=== PATIENT | male | born 1955 | race Caucasian/White ===

== ENCOUNTER 2018-03-25 09:14 | Emergency (ER) | payer OTHER ==
[2018-03-25] MEDS ORDERED: Ketorolac Tromethamine 30 MG/ML VIAL ONE (09:59)
--- NOTE | 2018-03-25 11:01 | CT ---
CT LUMBAR SPINE WITH CORONAL AND SAGITTAL REFORMATIONS: Date: 03/25/18 HISTORY: Severe low back pain. FINDINGS: There is mild wedging of the superior end plate of T12 vertebral body with adjacent sclerotic change consistent with compression fracture. No subluxation or retropulsion is seen. The vertebral body heig hts in the lumbar spine are maintained. Degenerative changes are present. There are broad based disc bulges at L3-L4, L4-L5, and L5-S1 levels with suggestion of right-sided neural foraminal stenosis at L5-S1 level. IMPRESSION: Mild wedge compression fracture T12 vertebra. POS: GIDEON
== END 2018-03-25 11:00 | disposition home or self-care (01) ==
LOC: ERS 09:14
DX: S22.080A Wedge compression fracture of T11-T12 vertebra, initial encounter for closed fracture (principal); K21.9 Gastro-esophageal reflux disease without esophagitis; I10 Essential (primary) hypertension; Z85.21 Personal history of malignant neoplasm of larynx; X50.9XXA Other and unspecified overexertion or strenuous movements or postures, initial encounter; Y92.59 Other trade areas as the place of occurrence of the external cause; Y99.0 Civilian activity done for income or pay
CPT/HCPCS: 72131; 96374; J1885

== ENCOUNTER 2018-12-07 11:03 | Outpatient (CLI) | payer OTHER ==
--- NOTE | 2018-12-07 12:32 | ULT ---
LEFT LOWER EXTREMITY VENOUS DUPLEX: History: Left lower extremity pain and swelling. FINDINGS: Real-time color doppler evaluation of the left lower extremity was performed from groin to calf. This includes evaluation of the common femoral, superficial, femoral, profunda femoral, saphenous, poplit eal and posterior tibial vein. This shows a deep venous system. There is normal compressibility and a ugmentation. There is no evidence of DVT. IMPRESSION: No evidence of DVT of the left lower extremity. POS: GIDEON
== END 2018-12-07 11:04 | disposition home or self-care (01) ==
LOC: SCSULT 11:03
PROVIDERS: ATTEND Family Medicine
DX: M79.89 Other specified soft tissue disorders (principal)

== ENCOUNTER 2019-05-03 10:06 | Outpatient (CLI) | payer OTHER ==
--- NOTE | 2019-05-03 10:40 | RAD ---
3 views right shoulder: 05/03/2019 HISTORY: Fall, trauma, pain FINDINGS: No widening of the acromioclavicular or coracoclavicular interspace. There is mild degenera tive change involving the right AC joint. No displaced fracture or evidence of dislocation is seen. IMPRESSION: No acute osseous abnormality.
[2019-05-03 11:21] LABS: Free T4 (Free Thyroxine) 1.06 ng/dL (0.70-1.48); Thyroid Stimulating Hormone 0.9259 uIU/mL (0.35-4.94)
--- NOTE | 2019-05-03 11:23 | RAD ---
3 VIEW LEFT FOOT: Date: 05/03/19 INDICATION: Left foot pain. FINDINGS: Lisfranc joint is intact. No fracture or dislocation of the left foot. No significant arthropathy. Mi ld enthesophyte formation is seen at the calcaneus. IMPRESSION: No acute osseous abnormality. POS: EMY
[2019-05-03 11:49] LABS: Hemoglobin A1c 6.3 % (4.0-6.0)
== END 2019-05-03 10:07 | disposition home or self-care (01) ==
LOC: SCSRAD 10:06
PROVIDERS: ATTEND Family Medicine
DX: S43.421A Sprain of right rotator cuff capsule, initial encounter (principal); M72.2 Plantar fascial fibromatosis; E03.9 Hypothyroidism, unspecified; R73.09 Other abnormal glucose
CPT/HCPCS: 36415; 83036; 84439; 84443; 84481

== ENCOUNTER 2019-06-15 15:38 | Outpatient (CLI) | payer OTHER ==
--- NOTE | 2019-06-20 10:13 | MRI ---
MRI RIGHT SHOULDER WITHOUT CONTRAST: INDICATIONS: Right shoulder pain. COMPARISON: Right shoulder radiograph dated 05/03/2019. FINDINGS: There is a complete full-width tear of the supraspinatus with tear measuring 3 cm in its greatest med iolateral dimension. There is abnormal linear increased T2 signal involving the anterior-superior, s uperior, and posterior-superior glenoid labrum, consistent with a SLAP tear. There is tear extension into the biceps anchor and proximal biceps tendon. There are two small paralabral cysts adjacent to the posterior superior glenoid labrum. There is moderate tendinosis of the biceps tendon. The tend on is located within the bicipital groove. There is mild tendinosis of the subscapularis. There is moderate tendinosis of the infraspinatus. There is some intratendinous delamination into the anterio r aspect of the infraspinatus, from the large supraspinatus tear, near the region of the conjoined te ndon. No muscular atrophy is evident. There is mild AC joint osteoarthrosis. No enlarged lymph nod es are present. IMPRESSION: 1. Full-thickness, full-width tear of the supraspinatus with retraction of the tendon 3 cm. 2. Large SLAP tear involving the anterior-superior, superior, and posterior-superior glenoid labrum, with associated 4 and 5 mm paralabral cysts involving the posterior-superior margin of the glenoid. There is tear extension into the biceps anchor and proximal biceps tendon. 3. Moderate biceps tendinosis. 4. Tendinosis of the subscapularis and infraspinatus. 5. Mild acromioclavicular joint osteoarthrosis. POS: TPC
== END 2019-06-15 15:39 | disposition home or self-care (01) ==
LOC: SCSMRI 15:38
PROVIDERS: ATTEND Family Medicine
DX: M75.41 Impingement syndrome of right shoulder (principal); S46.811A Strain of other muscles, fascia and tendons at shoulder and upper arm level, right arm, initial encounter; M75.81 Other shoulder lesions, right shoulder; M19.011 Primary osteoarthritis, right shoulder

== ENCOUNTER 2019-10-23 06:54 | Outpatient (CLI) | payer OTHER ==
[2019-10-23 09:57] LABS: #Eosinphils 0.2 thou/uL (0.0-0.7); #Lymphocytes 0.8 thou/uL (1.20-3.40); #Monocytes 0.7 thou/uL (0.11-0.59); #Neutrophils 5.2 thou/uL (1.40-6.50); %Basophils 0.2 % (0.0-1.0); %Eosinophils 2.8 % (0.0-10.0); %Lymphocytes 11.3 % (21.0-51.0); %Monocytes 10.1 % (0.0-10.0); %Neutrophils 75.6 % (42.0-75.0); Hemoglobin 13.1 g/dL (14.0-18.0); Mean Corpuscular HGB CONC 33.9 g/dL (32.0-36.0); Mean Corpuscular Hemoglobin 32.4 pg (27.0-31.0); Mean Corpuscular Volume 95.6 fL (78.0-98.0); Mean Platelet Volume 6.7 fL (7.4-10.4); Platelet Count 277 thou/uL (130-400); RBC Distribution Width 10.9 % (11.5-14.5); Red Blood Cell (RBC) Count 4.06 mill/uL (4.70-6.10); White Blood Cell (WBC) Count 6.9 thou/uL (4.8-10.8)
[2019-10-23 10:20] LABS: Anion Gap 13 mmol/L (10-20); BUN (Urea Nitrogen) 8 mg/dL (8.4-25.7); Calc. Creatinine Clearance 0 mL/min (70-130); Calcium 9.6 mg/dL (7.8-10.44); Carbon Dioxide 24 mmol/L (23-31); Chloride 105 mmol/L (98-107); Estimated GFR-MDRD 65; Glucose 114 mg/dL (80-115); Potassium 4.3 mmol/L (3.5-5.1); Sodium 138 mmol/L (136-145)
== END 2019-10-23 06:55 | disposition home or self-care (01) ==
LOC: LABBT 06:54
PROVIDERS: ATTEND Orthopaedic Surgery
DX: Z01.812 Encounter for preprocedural laboratory examination (principal); M75.101 Unspecified rotator cuff tear or rupture of right shoulder, not specified as traumatic
CPT/HCPCS: 80048; 85025; 93005; 93010

== ENCOUNTER 2019-10-25 06:27 | Day surgery (SDC) | payer OTHER ==
[2019-10-23 09:08] VITALS: BMI 25.5
[2019-10-25] MEDS ORDERED: Midazolam HCl 2 mg/2 ml Vial ONE (08:09)
[2019-10-25] MEDS ORDERED: Fentanyl 100 MCG/2 ML VIAL ONE ×2 (08:09→12:46)
[2019-10-25] MEDS ORDERED: Lidocaine 1% PF 5 ML VIAL ONE (11:17)
[2019-10-25] MEDS ORDERED: Ropivacaine 0.5% HCl/PF (150 MG/30 ML VIAL) ONE (11:17)
[2019-10-25] MEDS ORDERED: Rocuronium Bromide 10 MG/ML (10ML VIAL) ONE (11:17)
[2019-10-25] MEDS ORDERED: Ropivacaine 0.2% HCl/PF (40 MG/20 ML VIAL) ONE (11:17)
[2019-10-25] MEDS ORDERED: PROPOFOL 200 MG/20 ML VIAL ONE (11:17)
[2019-10-25] MEDS ORDERED: Ondansetron PF 4 MG/2 ML Vial IVP PRN (12:13)
[2019-10-25] MEDS ORDERED: Fentanyl 100 MCG/2 ML VIAL SLOW IVP PRN (12:13)
[2019-10-25] MEDS ORDERED: HYDROcodone/Acetaminophen 10/325 mg Tablet PO PRN ×2 (12:13)
[2019-10-25] MEDS ORDERED: Ropivacaine 0.2% 550 ML 550 ML NERVE BLCK SCH (12:13)
[2019-10-25] MEDS ORDERED: Zolpidem Tartrate 5 MG TAB PO PRN (12:13)
[2019-10-25] MEDS ORDERED: traMADol HCl 50 MG TAB PO PRN ×2 (12:13)
[2019-10-25] MEDS ORDERED: Promethazine HCl 25 MG/ML VIAL IM PRN (12:13)
[2019-10-25] MEDS ORDERED: Acetaminophen 325 MG TAB PO PRN (12:14)
--- NOTE | 2019-10-25 13:20 | OP ---
DATE OF PROCEDURE: 10/25/2019 PREOPERATIVE DIAGNOSES: Right shoulder impingement, large rotator cuff tear, and biceps tendon tear, AC joint arthritis. POSTOPERATIVE DIAGNOSES: Right shoulder impingement, large rotator cuff tear, and biceps tendon tear, AC joint arthritis PROCEDURES PERFORMED: 1. Right open subacromial decompression 2. Open distal clavicle excision 2. Open rotator cuff repair. 3. Open biceps tenodesis. SHOP SERVICE TECHNICIAN: Darrin Watkins PA-C ESTIMATED BLOOD LOSS: 50 mL. COMPLICATIONS: None. ANESTHESIA: He did have a general anesthetic and he had a preoperative block. IMPLANTS: To the right shoulder include 2 titanium rotator cuff anchors. We used two 4.75 mm BioComposite SwiveLock for our double row repair. We used one 7 x 23 BioComposite Bio-Tenodesis screw. DISPOSITION: He went to recovery room in stable condition. INDICATIONS: A 64-year-old male comes in complaining of right shoulder pain and weakness and was found to have a large cuff tear on MRI scan. At this time, he opted to have surgery. DESCRIPTION OF PROCEDURE: After all appropriate consent forms were explained and signed, Robert was taken back to the operative room and at this time was given general anesthetic. Once the level of anesthesia was appropriate, he was placed in a modified beach chair position with all bony prominences well padded. The right shoulder and upper extremity were then prepped and draped in standard surgical fashion. Incision was made with a 10 blade down through skin and Bovie was used to coagulate any brisk venous bleeding. We took some of the fascia as between the fascial plane and the deltoid, so that we could have a small bowel window for our procedure. At this time, the Bovie was used to take full- thickness periosteum and deltoid off the anterior acromion and this was taken medially across the AC joint to expose the distal centimeter of the clavicle. At this time, a saw was used to perform an anterior inferior acromioplasty and removed 1 cm distal clavicle. The edges were smoothed off with a rasp and a small amount of bone wax was placed onto the bleeding cancellous bone of the clavicle. This was then thoroughly irrigated and dried. At this time, the bursa was removed and the underlying rotator cuff tear and remaining rotator cuff tendon was exposed. We then found our biceps tendon. This was tagged and cut off the superior labrum. We opened the transverse humeral ligament to expose the biceps tendon. All brisk venous bleeding was coagulated and all excess tissue was removed. We then sutured the biceps, removed the intra-articular portion of it, placed our guide pin, reamed with a 7 mm reamer to a depth of 25 and placed our 7 x 23 BioComposite Bio- Tenodesis screw in standard fashion. Sutures were tied over top of this, so the screw could not back out. This ended this portion of the procedure. We then went to the rotator cuff. We freshened up all the edges with a knife and we had a V-shaped tear that would require some closing of the interval between the rotator cuff medially followed by reattaching it laterally. The attachment site was cleaned off using a combination of a blade, curette, and the rongeur. At this time, we thoroughly irrigated and dried some more. We then went ahead and placed multiple interrupted sutures to close our interval and give us one nice lateral edge to reattach to the bone. Two titanium cup anchors were then applied right at the articular bony interface and all 4 sets of the sutures were taken through the rotator cuff in mattress fashion. These were then all tied, and brought down laterally into 2 separate 4.75 SwiveLock for a double-row repair. This gave us an excellent watertight repair. We thoroughly irrigated and dried one more time. The arm was taken through full range of motion and cuff repair was found to have 0 tension on it. At this time, we then took multiple Ethibond sutures in Sergio-Ramesh fashion and used them to reattach our deltoid through the bony acromion for our deltoid repair. These were tied. We then took a Vicryl and ran a Vicryl over top of this securely closing our fascial plane. We then used 2-0 Vicryl and surgical jae on the skin. A bulky sterile dressing was applied. He was then placed in a sling. He was awakened and taken to recovery room in stable condition. All counts were correct at the end of the case and Robert did receive preoperative IV antibiotics. Job ID: [id number] MTDD
[2019-10-25] MEDS ORDERED: CEFAZOLIN 2 GM in Premix Bag 1 BAG IVPB SCH (14:45)
[2019-10-25] MEDS ORDERED: Vancomycin HCl 1 GM in Premix Bag 1 BAG IVPB SCH (14:45)
== END 2019-10-25 14:20 | disposition home or self-care (01) ==
LOC: SDC 06:27
PROVIDERS: ATTEND Orthopaedic Surgery
PROC: 0RNJ0ZZ Release Right Shoulder Joint, Open Approach (ICD-10-PCS; principal; 2019-10-25)
PROC: 0LS10ZZ Reposition Right Shoulder Tendon, Open Approach (ICD-10-PCS; principal; 2019-10-25)
PROC: 0PT90ZZ Resection of Right Clavicle, Open Approach (ICD-10-PCS; principal; 2019-10-25)
PROC: 3E0T3BZ Introduction of Anesthetic Agent into Peripheral Nerves and Plexi, Percutaneous Approach (ICD-10-PCS; principal; 2019-10-25)
PROC: 0LM10ZZ Reattachment of Right Shoulder Tendon, Open Approach (ICD-10-PCS; principal; 2019-10-25)
DX: M75.121 Complete rotator cuff tear or rupture of right shoulder, not specified as traumatic (principal); I10 Essential (primary) hypertension; F17.210 Nicotine dependence, cigarettes, uncomplicated; M06.9 Rheumatoid arthritis, unspecified; G89.18 Other acute postprocedural pain; Z79.82 Long term (current) use of aspirin; Z79.899 Other long term (current) drug therapy
CPT/HCPCS: C1713; J2001; J2250; J2704; J2795; J3010

== ENCOUNTER 2019-11-16 16:18 | Inpatient (IN) | payer OTHER ==
--- NOTE | 2019-11-16 17:00 | RAD ---
Frontal and lateral imaging of the chest: 11/16/2019 COMPARISON: 07/20/2017 HISTORY: Chest pain for a week FINDINGS: There is evidence of prior kyphoplasty at T12. There is mild increased linear interstitial density with pulmonary hyperinflation. No pneumothorax, pleural fluid, focal consolidation, or alveolar edema. There is thoracic spine degenerative change with multilevel disc space narrowing and anterior osteophyte formation. IMPRESSION: No focal consolidation or alveolar edema.
[2019-11-16 17:12] LABS: #Lymphocytes 0.6 thou/uL (1.20-3.40); #Monocytes 0.6 thou/uL (0.11-0.59); #Neutrophils 6.1 thou/uL (1.40-6.50); %Eosinophils 0.1 % (0.0-10.0); %Lymphocytes 7.7 % (21.0-51.0); %Monocytes 8.7 % (0.0-10.0); %Neutrophils 83.5 % (42.0-75.0); Hemoglobin 12.1 g/dL (14.0-18.0); Mean Corpuscular Hemoglobin 32.1 pg (27.0-31.0); Mean Corpuscular Volume 94.5 fL (78.0-98.0); Mean Platelet Volume 7.3 fL (7.4-10.4); Platelet Count 288 thou/uL (130-400); RBC Distribution Width 11.2 % (11.5-14.5); Red Blood Cell (RBC) Count 3.76 mill/uL (4.70-6.10); White Blood Cell (WBC) Count 7.3 thou/uL (4.8-10.8)
[2019-11-16 17:32] LABS: ALT (SGPT) 24 U/L (8-55); AST (SGOT) 20 U/L (5-34); Albumin 4.7 g/dL (3.4-4.8); Alkaline Phosphatase 112 U/L (40-110); Anion Gap 14 mmol/L (10-20); BUN (Urea Nitrogen) 17 mg/dL (8.4-25.7); Bilirubin, Total 0.3 mg/dL (0.2-1.2); CK (CPK) 35 U/L (30-200); Calc. Creatinine Clearance 0 mL/min (70-130); Calcium 9.7 mg/dL (7.8-10.44); Carbon Dioxide 29 mmol/L (23-31); Chloride 94 mmol/L (98-107); Estimated GFR-MDRD 53; Glucose 129 mg/dL (80-115); Potassium 5.3 mmol/L (3.5-5.1); Protein, Total 7.7 g/dL (5.8-8.1); Sodium 132 mmol/L (136-145)
[2019-11-16 21:44] VITALS: BMI 23.8
[2019-11-16] MEDS ORDERED: Nitroglycerin 0.4 MG TAB (25 Tab Bottle) ONE (21:55)
[2019-11-16] MEDS ORDERED: Nitroglycerin 0.4 MG TAB (25 Tab Bottle) SL PRN (22:21)
[2019-11-17 00:28] LABS: CKMB 1.6 ng/mL (0-6.6)
[2019-11-17] MEDS ORDERED: Aspirin 81 mg Enteric Coated Tablet PO SCH (00:30)
[2019-11-17] MEDS ORDERED: Sodium Chloride 0.9% 1,000 ML IV SCH ×3 (00:30→11:09)
[2019-11-17] MEDS ORDERED: Acetaminophen 650 MG Suppository PR PRN (00:31)
[2019-11-17] MEDS ORDERED: Ondansetron PF 4 MG/2 ML Vial IVP PRN (00:31)
[2019-11-17] MEDS ORDERED: Acetaminophen 325 MG TAB PO PRN (00:31)
[2019-11-17] MEDS ORDERED: Ondansetron ODT 4 MG TAB PO PRN (00:31)
[2019-11-17] MEDS: Lorazepam 2 MG/ML VIAL SLOW IVP PRN ×3 (00:53→19:38)
[2019-11-17] MEDS ORDERED: Dextrose 5% in Water 1,000 ML IV PRN (01:03)
[2019-11-17] MEDS ORDERED: Dextrose 50% Abboject 50 ML SYRINGE SLOW IVP PRN (01:03)
[2019-11-17] MEDS ORDERED: HumaLOG 300 UNITS/3 ML VIAL SC PRN ×2 (01:03)
[2019-11-17 01:23] LABS: Magnesium 2.2 mg/dL (1.6-2.6); Potassium 4.2 mmol/L (3.5-5.1)
[2019-11-17 04:44] LABS: Amphetamine Not Detected (NotDetected); Barbiturates Screen Not Detected (NotDetected); Benzodiazepine Screen Detected (NotDetected); Cocaine Metabolite Screen Not Detected (NotDetected); Medtox Control Line Valid? VALID (VALID); Medtox Reader # READER 1; Methadone Not Detected (NotDetected); Methamphetamine Not Detected (NotDetected); Opiate Screen Not Detected (NotDetected); Oxycodone Screen Not Detected (NotDetected); Phencyclidine (PCP) Not Detected (NotDetected); THC/Cannabinoid Screen Not Detected (NotDetected); Tricyclic Screen Not Detected (NotDetected)
[2019-11-17] MEDS: Levothyroxine Sodium 75 MCG TAB PO SCH (05:25)
[2019-11-17 05:28] LABS: #Eosinphils 0.1 thou/uL (0.0-0.7); #Monocytes 0.8 thou/uL (0.11-0.59); #Neutrophils 5.1 thou/uL (1.40-6.50); %Basophils 0.6 % (0.0-1.0); %Eosinophils 0.8 % (0.0-10.0); %Lymphocytes 14.4 % (21.0-51.0); %Monocytes 11.9 % (0.0-10.0); %Neutrophils 72.3 % (42.0-75.0); Hemoglobin 11.3 g/dL (14.0-18.0); Mean Corpuscular HGB CONC 34.1 g/dL (32.0-36.0); Mean Corpuscular Hemoglobin 32.4 pg (27.0-31.0); Mean Corpuscular Volume 94.9 fL (78.0-98.0); Mean Platelet Volume 7.5 fL (7.4-10.4); Platelet Count 256 thou/uL (130-400); RBC Distribution Width 11.3 % (11.5-14.5); Red Blood Cell (RBC) Count 3.49 mill/uL (4.70-6.10); White Blood Cell (WBC) Count 7.1 thou/uL (4.8-10.8)
[2019-11-17 05:46] LABS: Anion Gap 13 mmol/L (10-20); BUN (Urea Nitrogen) 18 mg/dL (8.4-25.7); Calc. Creatinine Clearance 77 mL/min (70-130); Carbon Dioxide 25 mmol/L (23-31); Chloride 99 mmol/L (98-107); Cholesterol 141 mg/dl (< 200 Desired); Estimated GFR-MDRD 79; Glucose 103 mg/dL (80-115); HDL Cholesterol 71 mg/dL (>60 Neg Risk); LDL Cholesterol, Calculated 56 mg/dL; Potassium 3.9 mmol/L (3.5-5.1); Sodium 133 mmol/L (136-145); Triglycerides 71 mg/dL (Less than 150)
[2019-11-17] MEDS: Atorvastatin Calcium 40 MG TAB PO SCH (07:43)
[2019-11-17] MEDS: Aspirin 81 mg Enteric Coated Tablet PO SCH (07:43)
[2019-11-17] MEDS: Amlodipine 10 MG TAB PO SCH (08:02)
[2019-11-17] MEDS ORDERED: Amlodipine 10 MG TAB PO SCH (09:00)
[2019-11-17] MEDS ORDERED: Communication Order-Pharmacy FS SCH (09:30)
[2019-11-17] MEDS: predniSONE 5 MG TAB PO SCH (09:38)
[2019-11-17] MEDS ORDERED: Heparin 10,000 UNITS/1 ML VIAL ONE (09:54)
[2019-11-17] MEDS ORDERED: Fentanyl 100 MCG/2 ML VIAL ONE (09:56)
[2019-11-17] MEDS ORDERED: Midazolam HCl 2 mg/2 ml Vial ONE (09:56)
--- NOTE | 2019-11-17 10:13 | CON ---
DATE OF CONSULTATION: HISTORY: Robert Loera is a 64-year-old white male, who I have followed since 1993. He underwent cardiac catheterization at that time and was found to have minimal coronary artery disease with 10% left main and 30% to 40% lesion in a septal branch. He has had negative noninvasive studies since that time. Most recently , he had Lexiscan Cardiolite test on August 17, 2019, prior to rotator cuff surgery. This revealed no evidence of ischemia. He underwent right shoulder surgery on October 25, 2019, without incident. Over the last week, both with exertion or at rest, he will have substernal chest pressure and tightness that will be relieved in a few seconds with sublingual nitroglycerin. He denies any shortness of breath, nausea, vomiting, or diaphoresis with this discomfort. He has been having three or four episodes per day and came to the emergency room for further evaluation. PAST MEDICAL HISTORY: Hypercholesterolemia, minimal coronary artery disease, cancer of the larynx with radiation in September 2015, hypothyroidism, hypertension, rheumatoid arthritis, and diabetes. MEDICATIONS: 1. Amlodipine 10 mg daily. 2. Aspirin 81 daily. 3. Atorvastatin 80 mg q.a.m. 4. Furosemide q.a.m. 5. Levothyroxine 75 mcg daily. 6. Lisinopril 40 mg daily. 7. Metformin 500 mg q.a.m. 8. Metoprolol 100 ER q.a.m. 9. Nitroglycerin p.r.n. 10. Omeprazole 20 daily. 11. Prednisone 10 mg q.a.m. SOCIAL HISTORY: He smokes 1/2 pack per day. He drinks 4 to 5 drinks per day. FAMILY HISTORY: Father had myocardial infarction. REVIEW OF SYSTEMS: A 10-point review of systems is otherwise unremarkable. PHYSICAL EXAMINATION: VITAL SIGNS: Blood pressure 152/78, pulse is 78. HEENT: PERRL. NECK: Supple. CHEST: Clear. CARDIAC: S1 and S2 normal without any S3, S4, or murmurs. Carotid upstrokes normal without bruits. ABDOMEN: Normal bowel sounds without tenderness or organomegaly. EXTREMITIES: Revealed no clubbing, cyanosis, or edema. NEUROLOGIC: Grossly intact. SKIN: Warm and dry. LABORATORY DATA: EKG reveals normal sinus rhythm with possible left atrial enlargement and left ventricular hypertrophy. Troponin-I 0.031. Sodium 133, potassium 3.9, chloride 99, carbon dioxide 25, BUN 18, creatinine 0.96. Cholesterol 141, triglycerides 71, HDL 71, LDL 56. BNP 216.1. TSH is elevated at 6.3267. Hemoglobin 11.3, hematocrit 33.1, white count 7100, platelets 256,000. D-dimer less than 0.27. Urine drug screen is positive for benzodiazepine. IMPRESSION: 1. History compatible with unstable angina over the last week, especially someone who is on a proton pump inhibitor. He had a normal Cardiolite 3 months ago. 2. Minimal coronary artery disease on catheterization in 1993. 3. Hypertension. 4. Hypercholesterolemia, under good control. 5. Diabetes. 6. Smoker. 7. Positive family history. 8. Rheumatoid arthritis, on chronic steroids. 9. Hypothyroidism with slightly elevated TSH. PLAN: The situation was discussed with the patient. It is recommended that he undergo cardiac catheterization. Risks have been discussed including , myocardial infarction, dye reaction, vascular injury, CVA, transfusion, limb loss, renal loss, etc. Also risks of intervention with PTCA and stent placement were discussed including , myocardial infarction, emergent CABG, restenosis, stent thrombosis, vessel perforation, etc. He states he does not have any further surgeries in the near future. He has never had gastrointestinal bleeding or stroke and so a drug-eluting stent will be placed if needed. Job ID: [id number] PETRA
[2019-11-17] MEDS ORDERED: Bivalirudin 250 MG VIAL ONE (10:28)
[2019-11-17] MEDS ORDERED: Nitroglycerin 100MG/250ML BOT 250 ML ONE (10:28)
[2019-11-17] MEDS ORDERED: Clopidogrel Bisulfate 300 MG TAB ONE (10:32)
[2019-11-17] MEDS ORDERED: Heparin (Artline) 500 ML ONE (10:33)
[2019-11-17] MEDS ORDERED: Morphine 2 MG/ML SYRINGE SLOW IVP PRN (11:07)
[2019-11-17] MEDS ORDERED: Morphine 4 MG/ML VIAL SLOW IVP PRN (11:07)
--- NOTE | 2019-11-17 11:19 | HP ---
TIME OF ASSESSMENT: 12 a.m. CHIEF COMPLAINT: Severe chest pain, increasing in frequency. PRIMARY CARE PHYSICIAN: Dr. Dawkins. HISTORY OF PRESENT ILLNESS: Mr. Loera is a 64-year-old gentleman, with a known history of angina, who is seen regularly by Dr. Garcia, presenting with persistent severe chest pain. The patient states he was previously experiencing chest pain "every once in a while" which he estimates was about 1-2 times a month. He recently underwent rotator cuff surgery on 10/25/2019. Since a week and a half ago, he noted daily episodes of central chest pain. He states the pain feels sharp and tight and is immediately resolved with nitroglycerin. It sometimes radiates up his chest into his jaw. Sometimes it radiates to the bilateral shoulders. The patient states he has not experienced any cough, hemoptysis, or associated shortness of breath. He states since Wednesday, the pain has become significantly more frequent. It was occurring once a day and since Wednesday, it has been occurring hourly during the evening hours. The patient states it happens when he is resting or when he is moving about. He called his primary care physician today and spoke to the on-call physician due to running out of nitroglycerin and was prompted to come to the emergency department. In the ED, he had an EKG done which showed a normal sinus rhythm with a heart rate of 64 and change is consistent with left ventricular hypertrophy. A repeat EKG in the ED showed sinus bradycardia with a heart rate of 59. There were no dynamic changes compared to the initial EKG. He also had laboratory studies which showed a white count of 7.3, hemoglobin of 12.1, hematocrit of 35.5, platelets of 288, neutrophils 83.5%. Sodium 132, potassium 5.3, BUN 17, creatinine 1.36, GFR 53, glucose 129. LFTs unremarkable. Alkaline phosphatase 112. CK 35. Initial and second troponin, negative. A chest x-ray was done. There was no focal consolidation or alveolar edema. He is noted to have mild increased linear interstitial density with pulmonary hyperinflation. There was thoracic spine degenerative change with multilevel disk space narrowing and anterior osteophyte formation. In the emergency department, he did not receive any treatment. The patient states he took his baby aspirin as normal this morning and did not receive any additional aspirin in the emergency department. Of note, the patient underwent recent echo and normal stress test in the last year done by Dr. Garcia. PAST MEDICAL HISTORY: 1. Diabetes. 2. Hypothyroidism. 3. Gastritis. 4. GERD. 5. Hyperlipidemia. 6. Hypertension. 7. History of laryngeal cancer, treated with radiation. 8. Alcohol, excess. PAST SURGICAL HISTORY: 1. Right shoulder rotator cuff repair, done October 25, 2019. 2. Hernia repair. 3. Facial surgery. SOCIAL HISTORY: The patient reports drinking 10 cigarettes to 1 full pack per day. Reports drinking 5-6 beers everyday. Has never stopped drinking and therefore does not know if he has a tendency to experience alcohol withdrawals. Denies any history of drug use. ALLERGIES: NO KNOWN DRUG ALLERGIES. CURRENT MEDICATIONS: 1. Metformin. 2. Metoprolol succinate. 3. Lisinopril. 4. Prednisone. 5. Amlodipine. 6. Atorvastatin. 7. Aspirin. 8. Omeprazole. 9. Nitroglycerin. 10. Furosemide. 11. Levothyroxine. PHYSICAL EXAMINATION: GENERAL: The patient appears thin, well developed, in no acute distress. VITAL SIGNS: Temperature 97.8, pulse 69, blood pressure 127/60, respirations 18, O2 saturation 98% on room air. HEENT: Normocephalic and atraumatic. Pupils are equal, round, and reactive to light. Sclerae without icterus. Oropharynx is clear. NECK: Supple. LUNGS: Clear to auscultation bilaterally. CARDIAC: Regular rate and rhythm without audible murmurs, rubs, or gallops. ABDOMEN: Soft, nontender, nondistended. Normoactive bowel sounds present. EXTREMITIES: No lower leg swelling or edema. No calf tenderness. NEUROLOGIC: Alert and oriented x3. SKIN: Warm and dry. INVESTIGATIONS: As mentioned above in HPI. IMPRESSION AND PLAN: Mr. Loera is a pleasant 64-year-old gentleman who has been admitted for management of the following; 1. Chest pain, presumed unstable angina. The patient seen in the emergency department by Dr. Cooper who obtained 2 EKGs with dynamic changes. First and second troponin negative. Chest x-ray reportedly unremarkable. He had a potassium of 5.3. Did not receive any treatment in the emergency department. He took his daily baby aspirin in the morning. We will go ahead and give remaining aspirin for a total dose of 324 mg. Consultation placed to Dr. Garcia, his fisher troll line. The patient states he had a recent normal stress test in August. We will obtain a urine drug screen. The patient is concerned of blood clots given recent surgery. No shortness of breath, hemoptysis, or lower leg swelling/calf tenderness. We will add on a D-dimer. If elevated, we will obtain a CT angiogram, otherwise we will plan for CT chest to further evaluate for any underlying intrathoracic abnormalities. 2. Continue cardiac monitoring. Lipid panel and TSH with morning labs. We will add on a magnesium. 3. [id number] renal insufficiency. The patient will remain n.p.o. at midnight. Awaiting Cardiology recommendations. We will give gentle IV hydration. Continue to monitor renal function. 4. Diabetes mellitus. Resume home medications once verified. Initiate insulin sliding scale. 5. Heavy alcohol, excess. The patient with no known history of alcohol withdrawal. We will initiate PAUL protocol. 6. Gastroesophageal reflux disease. Resume home medications. 7. Hypothyroidism. We will check TSH. Resume home medications once verified. 8. Hyperlipidemia. Lipid panel in the morning. Resume home medications once verified. 9. Hypertension. Monitor blood pressure. Resume home medications once verified. 10. Code status is full. Surrogate decision maker is his , Aleena Pedro. The patient's case discussed with attending who agrees with plan of care as described above. Job ID: [id number]
[2019-11-17] MEDS ORDERED: Iopamidol 370 76% 100 ML VIAL ONE (11:52)
[2019-11-17] MEDS ORDERED: Iopamidol 370 76% 50 ML VIAL FS ONE (11:52)
[2019-11-18] MEDS: Levothyroxine Sodium 75 MCG TAB PO SCH (04:55)
[2019-11-18 06:24] LABS: #Eosinphils 0.1 thou/uL (0.0-0.7); #Monocytes 0.8 thou/uL (0.11-0.59); #Neutrophils 5.6 thou/uL (1.40-6.50); %Basophils 0.5 % (0.0-1.0); %Eosinophils 1.3 % (0.0-10.0); %Lymphocytes 13.2 % (21.0-51.0); %Monocytes 10.8 % (0.0-10.0); %Neutrophils 74.2 % (42.0-75.0); Hemoglobin 11.8 g/dL (14.0-18.0); Mean Corpuscular HGB CONC 33.1 g/dL (32.0-36.0); Mean Corpuscular Volume 99.7 fL (78.0-98.0); Mean Platelet Volume 9.4 fL (7.4-10.4); RBC Distribution Width 11.3 % (11.5-14.5); RBC Morphology Normal; Red Blood Cell (RBC) Count 3.56 mill/uL (4.70-6.10); White Blood Cell (WBC) Count 7.5 thou/uL (4.8-10.8)
[2019-11-18 06:41] LABS: ALT (SGPT) 23 U/L (8-55); AST (SGOT) 28 U/L (5-34); Albumin 3.8 g/dL (3.4-4.8); Alkaline Phosphatase 87 U/L (40-110); Anion Gap 16 mmol/L (10-20); BUN (Urea Nitrogen) 14 mg/dL (8.4-25.7); Bilirubin, Total 0.4 mg/dL (0.2-1.2); Calc. Creatinine Clearance 85 mL/min (70-130); Calcium 8.8 mg/dL (7.8-10.44); Carbon Dioxide 19 mmol/L (23-31); Chloride 103 mmol/L (98-107); Estimated GFR-MDRD 88; Glucose 95 mg/dL (80-115); Potassium 4.6 mmol/L (3.5-5.1); Protein, Total 6.8 g/dL (5.8-8.1); Sodium 133 mmol/L (136-145)
[2019-11-18] MEDS: Atorvastatin Calcium 40 MG TAB PO SCH (08:48)
[2019-11-18] MEDS: Amlodipine 10 MG TAB PO SCH (08:48)
[2019-11-18] MEDS: Aspirin 81 mg Enteric Coated Tablet PO SCH (08:48)
[2019-11-18] MEDS: predniSONE 5 MG TAB PO SCH (08:49)
[2019-11-18] MEDS ORDERED: Clopidogrel Bisulfate 75 MG TAB PO SCH (09:00)
[2019-11-18 10:32] VITALS: TEMP 97.8
--- NOTE | 2019-11-18 13:18 | PDOC.HOSPP ---
- Subjective Encounter Date: 11/18/19 Encounter Time: 13:18 - Objective Vital Signs & Weight: Vital Signs (12 hours) Temp Pulse Pulse Pulse Resp BP BP 11/18/19 09:30 84 83 165/80 H 11/18/19 08:48 97.8 F 80 14 167/75 H 11/18/19 08:13 11/18/19 08:00 167/75 H 11/18/19 04:54 97.6 F 77 13 BP BP Pulse Ox 11/18/19 09:30 195/85 H 11/18/19 08:48 95 11/18/19 08:13 95 11/18/19 08:00 11/18/19 04:54 145/67 H 95 Weight Weight 156 lb 4.8 oz I&O: 11/17/19 11/18/19 11/19/19 06:59 06:59 06:59 Intake Total 349 3287 Output Total 525 2425 Balance -176 862 Result Diagrams: 11/18/19 05:42 11/18/19 05:42 Additional Labs: Accuchecks 11/18/19 11/18/19 11/17/19 11:41 06:44 20:28 POC Glucose 126 H 107 168 H 11/17/19 16:50 POC Glucose 148 H Hospitalist ROS - Medication Medications: Active Medications Generic Name Dose Route Start Last Admin Trade Name Freq PRN Reason Stop Dose Admin Amlodipine Besylate 10 mg 11/17/19 09:00 11/18/19 08:48 Norvasc PO 10 mg QAM RIOS Administration Aspirin 81 mg 11/17/19 09:00 11/18/19 08:48 Ecotrin PO 81 mg DAILY RIOS Administration Atorvastatin Calcium 80 mg 11/17/19 09:00 11/18/19 08:48 Lipitor PO 80 mg QAM RIOS Administration Clopidogrel Bisulfate 75 mg 11/18/19 09:00 11/18/19 08:48 Plavix PO 75 mg DAILY RIOS Administration Levothyroxine Sodium 75 mcg 11/17/19 06:00 11/18/19 04:55 Synthroid PO 75 mcg 0600 RIOS Administration Lorazepam 2 mg 11/17/19 00:22 11/17/19 19:38 Ativan SLOW IVP 2 mg Q6H PRN Administration Anxiety/Agitation Metoprolol Succinate 100 mg 11/17/19 09:00 11/18/19 08:49 Toprol Xl PO 100 mg QAM RIOS Administration Nitroglycerin 0.4 mg 11/16/19 22:21 11/16/19 23:21 Nitrostat SL 1 tab Q5MIN PRN Administration Chest Pain Pantoprazole Sodium 40 mg 11/17/19 09:00 11/18/19 08:49 Protonix PO 40 mg DAILY RIOS Administration Prednisone 10 mg 11/17/19 09:00 11/18/19 08:49 Prednisone PO 10 mg QAM RIOS Administration
[2019-11-18 13:52] LABS: Hemoglobin 12.7 g/dL (14.0-18.0); Mean Corpuscular HGB CONC 33.2 g/dL (32.0-36.0); Mean Corpuscular Hemoglobin 32.1 pg (27.0-31.0); Mean Corpuscular Volume 96.8 fL (78.0-98.0); Platelet Count 257 thou/uL (130-400); RBC Distribution Width 11.3 % (11.5-14.5); Red Blood Cell (RBC) Count 3.96 mill/uL (4.70-6.10); White Blood Cell (WBC) Count 10.2 thou/uL (4.8-10.8)
[2019-11-18] MEDS ORDERED: Lisinopril 20 MG TAB PO SCH (14:00)
[2019-11-18 14:23] LABS: Band 1 % (5-11); Lymphocytes 7 % (21-51); MDiff Complete? YES; Monocytes 1 % (0-10); Neutrophil 91 % (42-75); Platelet Morphology Comment Appears Adequate; RBC Morphology Normal
[2019-11-18 15:47] VITALS: BP 141/72
[2019-11-19] MEDS ORDERED: Lisinopril 20 MG TAB PO SCH (09:00)
== END 2019-11-18 17:01 | disposition home or self-care (01) | DRG 247 ==
LOC: ERS 16:18 → 2SW 21:39 → OBSVTOIN 11-18 13:16
PROVIDERS: ADMIT Emergency Medicine; ATTEND Emergency Medicine
PROC: 4A023N7 Measurement of Cardiac Sampling and Pressure, Left Heart, Percutaneous Approach (ICD-10-PCS; principal; 2019-11-17)
PROC: 027034Z Dilation of Coronary Artery, One Artery with Drug-eluting Intraluminal Device, Percutaneous Approach (ICD-10-PCS; 2019-11-17)
PROC: B2111ZZ Fluoroscopy of Multiple Coronary Arteries using Low Osmolar Contrast (ICD-10-PCS; 2019-11-17)
PROC: B2151ZZ Fluoroscopy of Left Heart using Low Osmolar Contrast (ICD-10-PCS; 2019-11-17)
DX: I25.110 Atherosclerotic heart disease of native coronary artery with unstable angina pectoris (principal); E03.9 Hypothyroidism, unspecified; K21.9 Gastro-esophageal reflux disease without esophagitis; E78.5 Hyperlipidemia, unspecified; F17.210 Nicotine dependence, cigarettes, uncomplicated; F10.10 Alcohol abuse, uncomplicated; I12.9 Hypertensive chronic kidney disease with stage 1 through stage 4 chronic kidney disease, or unspecified chronic kidney disease; E11.22 Type 2 diabetes mellitus with diabetic chronic kidney disease; N18.9 Chronic kidney disease, unspecified; M06.9 Rheumatoid arthritis, unspecified; Z79.84 Long term (current) use of oral hypoglycemic drugs; Z85.21 Personal history of malignant neoplasm of larynx
CPT/HCPCS: 36415; 36416; 71046; 80053; 80061; 80306; 82550; 82553; 83735; 83880; 84132; 84443; 84484; 85025; 85347; 85379; 92928; 93005; 93010; 93458; 93798; 94760; 99152; 99153; C1725; C1769; C1874; C1887; C9600; J0583; J1644; J2060; J2250; J3010; J7512; Q9967